=== PATIENT | female | born 1985 | race Caucasian/White ===

== ENCOUNTER 2017-03-28 18:55 | Emergency (ER) | payer MEDICAID, SELFPAY ==
[~2017-03-28] VITALS: Ht 170.2 cm; Wt 86.2 kg
[2017-03-28 19:00] VITALS: BP 114/73
[2017-03-28 20:06] LABS: HCG UR LOT HCG7030192
[2017-03-28 20:36] LABS: HCG UR OBC PASS
[2017-03-28] MEDS ORDERED: DEXAMETHASONE 4 MG TABLET PO STA (20:41)
[2017-03-28] MEDS ORDERED: DEXAMETHASONE 4 MG TABLET ONE (20:46)
[2017-03-28] MEDS ORDERED: KETOROLAC 30 MG/1 ML ONE (20:46)
[2017-03-28] MEDS ORDERED: KETOROLAC 60 MG/2 ML IM ONE (21:00)
== END 2017-03-28 21:20 | disposition home or self-care (01) ==
LOC: ED 20:45
DX: J20.9 Acute bronchitis, unspecified (principal); J02.8 Acute pharyngitis due to other specified organisms
CPT/HCPCS: 71020; 81025; 96372; 99284; J1885